=== PATIENT | female | born 1995 | race Caucasian/White ===

== ENCOUNTER 2020-07-09 01:31 | Inpatient (IN) | payer MEDICAID ==
[~2020-07-09] VITALS: Ht 157.5 cm; Wt 64.0 kg
[2020-07-09] MEDS ORDERED: DEXT 5%/LACTATED RINGERS 1,000 ML IV SCH (02:45)
[2020-07-09] MEDS ORDERED: DEXT 5%/LR + PITOCIN 20UNITS/L 1,000 ML IV SCH ×2 (02:45→04:45)
[2020-07-09] MEDS ORDERED: NALOXONE HCL 0.4 MG/ML 1ML VIAL IM PRN (02:45)
[2020-07-09] MEDS ORDERED: METHYLERGONOVINE MALEATE 0.2 MG/ML IM PRN ×2 (02:45→04:45)
[2020-07-09] MEDS ORDERED: MISOPROSTOL 100MCG TABLET RC SCH (02:45)
[2020-07-09] MEDS ORDERED: LIDOCAINE HCL 1% 20ML VIAL (Pyxis) INJ INFIL SCH (02:45)
[2020-07-09] MEDS ORDERED: PENICILLIN G POTASSIUM 5 MMU in DEXT 5% WATER 100 ML IV NR (03:00)
[2020-07-09 04:20] LABS: CLARITY URINE CLEAR (CLEAR); COLOR URINE YELLOW (YELLOW); KETONES URINE NEGATIVE (NEGATIVE); LEUKOCYTE ESTERASE URINE 3+ (NEGATIVE); NITRITE URINE NEGATIVE (NEGATIVE); OCCULT BLOOD URINE NEGATIVE (NEGATIVE); PROTEIN URINE NEGATIVE (NEGATIVE); SPECIFIC GRAVITY URINE 1.013 (1.005-1.030)
[2020-07-09 04:22] LABS: BASOPHILS % 0.5 % (0.0-2.0); EOSINOPHILS % 3.2 % (0.0-5.0); HEMATOCRIT. 35.8 % (36.0-48.0); HEMOGLOBIN. 11.8 g/dL (12.0-16.0); LYMPHOCYTES % 15.5 % (20.0-50.0); MEAN CORPUSCULAR HEMOGLOBIN 32.1 pg (28.0-32.0); MEAN CORPUSCULAR VOLUME 97.7 fL (81.0-99.0); MEAN PLATELET VOLUME 9.2 fl (7.4-10.4); MONOCYTES % 6.8 % (2.0-8.0); PLATELET 199 x1000/uL (130-400); RED BLOOD CELL COUNT 3.66 mill/uL (4.2-5.4); RED CELL DISTRIBUTION WIDTH 14.5 % (11.6-14.6)
[2020-07-09] MEDS ORDERED: ACETAMINOPHEN WITH CODEINE 300/30MG TABLET PO PRN (04:45)
[2020-07-09] MEDS ORDERED: BENZOCAINE/LANOLIN/ALOE VERA SPRAY TOP PRN (04:45)
[2020-07-09] MEDS ORDERED: IBUPROFEN 400MG TABLET PO PRN (04:45)
[2020-07-09] MEDS ORDERED: HEMORRHOIDAL SUPP PR PRN (04:45)
[2020-07-09] MEDS ORDERED: BISACODYL 10MG SUPP PR PRN (04:45)
[2020-07-09] MEDS ORDERED: DIPHENHYDRAMINE 25MG CAPSULE PO PRN (04:45)
[2020-07-09] MEDS ORDERED: LANOLIN OINT 7GM TUBE TOP PRN (04:45)
[2020-07-09] MEDS ORDERED: GLYCERIN/WITCH HAZEL LEAF MEDICATED PAD TOP PRN (04:45)
[2020-07-09] MEDS ORDERED: RHO(D) IMMUNE GLOBULIN 300 MCG/SYR IM PRN (04:45)
[2020-07-09 04:47] LABS: *BARBITURATES SCREEN URINE NEGATIVE (NEGATIVE)
[2020-07-09 04:48] LABS: *AMPHETAMINES SCREEN URINE NEGATIVE (NEGATIVE); *BENZODIAZEPINES SCREEN URINE NEGATIVE (NEGATIVE); *COCAINE SCREEN URINE NEGATIVE (NEGATIVE); CANNABINOID URINE SCREEN NEGATIVE (NEGATIVE); METHADONE URINE SCREEN NEGATIVE (NEGATIVE); OPIATES URINE SCREEN NEGATIVE (NEGATIVE); PHENCYCLIDINE URINE SCREEN NEGATIVE (NEGATIVE)
[2020-07-09 05:04] LABS: INR 0.9; PARTIAL THROMBOPLASTIN TIME 27.5 sec (23.4-31.0); PROTHROMBIN TIME 9.7 sec (9.6-11.0)
[2020-07-09] MEDS: IBUPROFEN 800MG TABLET PO PRN ×2 (06:06→16:22)
[2020-07-09 06:15] VITALS: BP 111/60
[2020-07-09 06:45] VITALS: BP 108/68
[2020-07-09] MEDS ORDERED: PENICILLIN G POTASSIUM 2.5 MMU in DEXTROSE 5% WATER 50 ML IV SCH (08:00)
[2020-07-09 08:09] VITALS: BP 105/66
[2020-07-09] MEDS: MAGNESIUM/ALUMINUM HYDROXIDE/SIMETHICONE 30ML UDC PO SCH ×3 (09:50→17:26)
[2020-07-09] MEDS: PRENATAL VIT/FE FUMARATE/FA TABLET PO SCH (09:51)
[2020-07-09] MEDS: SIMETHICONE 80MG TABLET CHEW PO SCH ×3 (09:51→17:26)
[2020-07-09 10:38] LABS: HEPATITIS B SURFACE ANTIGEN NEGATIVE
[2020-07-09 16:00] VITALS: BP 101/63
[2020-07-09 19:15] VITALS: BP 102/68
[2020-07-09] MEDS ORDERED: DOCUSATE SODIUM 100MG CAPSULE PO SCH (21:00)
[2020-07-09 23:45] VITALS: BP 103/67
[2020-07-10] MEDS: MAGNESIUM/ALUMINUM HYDROXIDE/SIMETHICONE 30ML UDC PO SCH (04:10)
[2020-07-10] MEDS: SIMETHICONE 80MG TABLET CHEW PO SCH ×2 (04:11→08:31)
[2020-07-10] MEDS: IBUPROFEN 800MG TABLET PO PRN ×2 (04:12→08:30)
[2020-07-10] MEDS ORDERED: IBUP-2030 PO (06:59)
[2020-07-10] MEDS ORDERED: FERR325T23 PO (06:59)
[2020-07-10] MEDS ORDERED: FERROUS SULFATE 325MG TABLET PO SCH (07:30)
[2020-07-10 08:00] VITALS: BP 103/65
[2020-07-10] MEDS: PRENATAL VIT/FE FUMARATE/FA TABLET PO SCH (08:30)
[2020-07-10 10:59] LABS: BASOPHILS % 0.5 % (0.0-2.0); HEMATOCRIT. 33.9 % (36.0-48.0); HEMOGLOBIN. 11.1 g/dL (12.0-16.0); LYMPHOCYTES % 15.8 % (20.0-50.0); MEAN CORPUSCULAR HEMOGLOBIN 32.3 pg (28.0-32.0); MEAN CORPUSCULAR VOLUME 98.9 fL (81.0-99.0); MEAN PLATELET VOLUME 9.1 fl (7.4-10.4); MONOCYTES % 5.3 % (2.0-8.0); NEUTROPHILS % 75.4 % (40.0-76.0); PLATELET 208 x1000/uL (130-400); RED BLOOD CELL COUNT 3.42 mill/uL (4.2-5.4); RED CELL DISTRIBUTION WIDTH 15.1 % (11.6-14.6)
== END 2020-07-10 12:15 | disposition home or self-care (01) | DRG 560 ==
LOC: OBSVTOIN 01:31 → 8 EST LDRP 01:31 → 8EST 06:15
PROVIDERS: ADMIT Obstetrics & Gynecology; ATTEND Obstetrics & Gynecology
PROC: 10E0XZZ Delivery of Products of Conception, External Approach (ICD-10-PCS; principal; 2020-07-09)
PROC: 0KQM0ZZ Repair Perineum Muscle, Open Approach (ICD-10-PCS; 2020-07-09)
DX: O70.1 Second degree perineal laceration during delivery (principal); Z3A.38 38 weeks gestation of pregnancy; Z37.0 Single live birth
CPT/HCPCS: 36415; 80305; 81003; 85025; 86592; 86703; 86762; 86850; 86900; 87340; 99281; J2540; J2590; J3490; J7060; J7121

== ENCOUNTER 2020-08-02 22:29 | Emergency (ER) | payer MEDICAID ==
[~2020-08-02] VITALS: Ht 157.5 cm; Wt 57.0 kg
[~2020-08-02 22:29] MED LIST: FERR325T23 PO; IBUP-2030 PO
[2020-08-02 22:40] VITALS: BP 124/85
[2020-08-02] MEDS ORDERED: CLIN300C3 PO (23:05)
[2020-08-02] MEDS ORDERED: IBUP-2029 PO (23:05)
== END 2020-08-02 23:26 | disposition home or self-care (01) ==
LOC: ER 22:29
DX: N61.0 Mastitis without abscess (principal)
CPT/HCPCS: 99283